=== PATIENT | female | born 1990 | race Asian ===

== ENCOUNTER 2016-06-18 13:23 | Emergency (ER) | payer OTHER ==
[2016-06-18] MEDS ORDERED: ACETAMINOPHEN 325 MG TAB As Ordered ONE (13:36)
[2016-06-18] MEDS ORDERED: OSELTAMIVIR PHOSPHATE 75 MG CAP (TAMIFLU) As Ordered ONE (14:27)
[2016-06-18] MEDS ORDERED: ONDANSETRON 4 MG ORAL DISINTEGRATING TAB (S0181) As Ordered ONE (14:35)
--- NOTE | 2016-06-18 14:54 | EDDOCDS ---
Nurse's Notes [facility] Name: Antoinette Mayo Age: 25 yrs Sex: Female : 1990 Arrival Date: 06/18/2016 Time: 13:23 Bed I1 / M1 Private MD: Diagnosis: Influenza due to identified novel influenza A virus;Nausea and vomiting Presentation: 06/18 13:31 Presenting complaint: Patient states: sore throat and feels like she has a fever, sinus pml congestion. ongoing since Saturday - has not taken tylenol or ibuprofen today. Adult Sepsis Screening: The patient does not have new or worsening altered mentation. Patient's respiratory rate is less than 22. Systolic blood pressure is greater than 100. Patient has a qSOFA score of 0- Negative Sepsis Screen. Suicide/Homicide risk assessment- the patient denies having any suicidal and/or homicidal ideations and does not present with any other emotional, behavioral or mental health complaints. 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 Transition of care: patient was not received from another setting of care. 13:31 Acuity: PRISCILA Level 4 pml 13:31 Method Of Arrival: Walkin/Carried/Asstd pml Triage Assessment: 13:32 General: Appears in no apparent distress, comfortable. Pain: Location: sore throat Pain pml currently is 6 out of 10 on a pain scale. 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 none - PMHx: none; - PSHx: none; - Social history: Smoking status: Patient states former smoker of tobacco. No barriers to communication noted, The patient speaks fluent Czech, Speaks appropriately for age. - Family history: Not pertinent. - : The pt / caregiver states he / she is not on anticoagulants. Home medication list is obtained from the patient. - Exposure Risk Screening:: None identified. Screenin:50 Screening information is obtained from the patient. Fall risk: No risks identified. kc3 Assistance ADL's: requires no assistance with activities of daily living. Abuse/DV Screen: The patient / caregiver reports he/she is: not in a situation that causes fear, pain or injury. Nutritional screening: No deficits noted. Advance Directives: Currently, there is no health care proxy. home support is adequate. Assessment: 14:50 General: Appears in no apparent distress, comfortable, Behavior is appropriate for age, kc3 cooperative. Neurological: Level of Consciousness is awake, alert, obeys commands. Respiratory: Respiratory effort is even, unlabored. GI: Reports nausea. Derm: Skin is pink, warm & dry. Vital Signs: 13:27 BP 133 / 76 RA Sitting (auto/reg); Pulse 103; Resp 20; Temp 101.6(O); Pulse Ox 99% on jrd R/A; Weight 72.85 kg (M); Height 5 ft. 6 in. (167.64 cm); Pain 6/10; 14:25 BP 112 / 64; Pulse 93; Resp 16; Temp 100.8(O); Pulse Ox 96% ; lr2 13:27 Body Mass Index 25.92 (72.85 kg, 167.64 cm) [facility] Vitals: 13:27 Log In Time: June 18, 2016 at 13:22. [facility] ED Course: 13:25 Patient visited by Frank Rodriguez PCA. jrd 13:25 Patient moved to Waiting jrd 13:30 Patient visited by Frank Rodriguez PCA. jrd 13:30 Patient moved to Pre RCE jrd 13:32 Triage Initiated pml 13:34 Patient visited by Donna Plascencia RN. pml 13:36 Patient moved to PR1 / 25 ml6 13:38 -Influenza A&B Rapid Antigen - Nose Sent. ar3 13:39 Patient moved to Pre RCE ar3 14:08 Patient moved to I1 / M1 ml6 14:09 Patient visited by Hallie Zeng PCA. jlf 14:10 Stephani Greene [facility]-C [facility] ef1 14:10 Daisy Butler MD is Attending Physician. ef1 14:10 Patient visited by Stephani Greene PA-C. ef1 14:45 Patient name changed from Rishika\S\\S\Mayo\S\ to Rishika\S\ \S\Mayo. EDMS 14:48 The patient / caregiver is instructed regarding the plan of care and ED course. kc3 14:49 No IV's were initiated during this patient's visit. No procedures done that require kc3 assistance. 14:50 [facility] Payment Agreement was scanned into [employer] and attached to record. mm15 Administered Medications: 13:38 Drug: Acetaminophen 650 mg [acetaminophen 325 mg tablet (2 tabs)] Route: PO; pml 14:34 Drug: Oseltamivir 75 mg [oseltamivir 75 mg capsule (1 caps)] Route: PO; kc3 14:48 Drug: Ondansetron ODT 4 mg [ondansetron 4 mg disintegrating tablet (1 tabs)] Route: PO; kc3 Order Results: Lab Order: -Influenza A&B Rapid Antigen - Nose; SPEC'M 06/18/16 13:38 Test: INFLUENZA A RAPID SCR by ICA; Value: INFLUENZA A RESULTS POSITIVE; Abnormal: Abnormal; Status: F Test: INFLUENZA A RAPID SCR by ICA; Value: Comments:; Status: F Test: INFLUENZA B RAPID SCR by ICA; Value: INFLUENZA B RESULTS NEGATIVE; Status: F Test Note: ; The Influenza test is a direct rapid immunoassay for the qualitative detection of Influenza viral antigen. Cell culture (Viral Culture) testing should be considered to confirm NEGATIVE results and to assist in detecting other viruses that can provide similar clinical symptoms. Please contact the lab within 24 hours ([phone]) if confirmatory testing is desired. Outcome: 14:30 Discharge ordered by Provider. ef1 14:51 Discharge Assessment: Patient awake, alert and oriented x 3. No cognitive and/or kc3 functional deficits noted. Patient verbalized understanding of disposition instructions. patient administered narcotics - no. The following High Risk Discharge criteria are identified: None. Discharged to home ambulatory. Condition: stable. Discharge instructions given to patient, Instructed on discharge instructions, follow up and referral plans. medication usage, Demonstrated understanding of instructions, medications, Pt was receptive of discharge instructions/ teaching. Prescriptions given X 2, Work note provided to patient. No special radiology studies were completed. Property :Personal belongings accompany Pt. 14:53 Patient left the ED. kc3 Signatures: Dispatcher [employer] EDMS Stephani Greene, RANDY PANavin ef1 Jay Webster RN RN ml6 Liza Hicks, DOG FOOD SHREDDER OPERATOR DOG FOOD SHREDDER OPERATOR ar3 Donna Plascencia RN RN pml McGrath, Marlynn mm15 Hallie Zeng, DOG FOOD SHREDDER OPERATOR DOG FOOD SHREDDER OPERATOR jlf Frank Rodriguez, DOG FOOD SHREDDER OPERATOR DOG FOOD SHREDDER OPERATOR jrd Lisa Mandel,RN RN kc3 Yadira Oden lr2 MTDD
--- NOTE | 2016-06-18 14:54 | EDDOCDS ---
Physician Documentation [facility] Name: Antoinette Mayo Age: 25 yrs Sex: Female : 1990 Arrival Date: 06/18/2016 Time: 13:23 Bed I1 / M1 Private MD: Disposition: 06/18/16 14:30 Discharged to Home/Self Care. Impression: Influenza due to identified novel influenza A virus, Nausea and vomiting. - Condition is Stable. - Discharge Instructions: Influenza Adult, Nausea and Vomiting, Evas-av-Daex. - Prescriptions for Ibuprofen 800 mg Oral Tablet - take 1 tablet by ORAL route every 8 hours As needed take with food; 30 tablet. Tamiflu 75 mg Oral Capsule - take 1 capsule by ORAL route every 12 hours for 5 days; 10 capsule. Zofran 4 mg Oral Tablet - take 1 tablet by ORAL route 4 times per day As needed; 10 tablet. - Medication Reconciliation, Local Pharmacy Hours, Work Release Form - 3 day form. - Follow up: Private Physician; When: 1 - 2 days; Reason: Recheck today's complaints, Continuance of care. Follow up: Emergency Department; Reason: Worsening of conditions. - Problem is new. - Symptoms have improved. Historical: - Allergies: no known allergies; - Home Meds: 1. none - PMHx: none; - PSHx: none; - Social history: Smoking status: Patient states former smoker of tobacco. No barriers to communication noted, The patient speaks fluent Yi, Speaks appropriately for age. - Family history: Not pertinent. - : The pt / caregiver states he / she is not on anticoagulants. Home medication list is obtained from the patient. - Exposure Risk Screening:: None identified. 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 6 in. (167.64 cm); Pain 6/10; 14:25 BP 112 / 64; Pulse 93; Resp 16; Temp 100.8(O); Pulse Ox 96% ; lr2 13:27 Body Mass Index 25.92 (72.85 kg, 167.64 cm) jrd MDM: 13:36 Acetaminophen Tablet 650 mg PO once ordered. ml6 13:36 Obtain sample by nasopharyngeal swab ordered. ml6 13:36 Strep Screen, Nursing ordered. ml6 13:36 -Influenza A&B Rapid Antigen - Nose Ordered. EDMS 13:45 GATS (NEGATIVE STREP SCREEN) Ordered. EDMS 14:07 -Influenza A&B Rapid Antigen - Nose Reviewed. sd1 14:11 Oseltamivir 75 mg PO once ordered. ef1 14:30 Ondansetron ODT Oral Disintegrating Tablet 4 mg PO once ordered. ef1 14:50 Financial registration complete. mm15 14:50 [facility] Payment Agreement was scanned into [employer] and attached to record. mm15 Administered Medications: 13:38 Drug: Acetaminophen 650 mg [acetaminophen 325 mg tablet (2 tabs)] Route: PO; pml 14:34 Drug: Oseltamivir 75 mg [oseltamivir 75 mg capsule (1 caps)] Route: PO; kc3 14:48 Drug: Ondansetron ODT 4 mg [ondansetron 4 mg disintegrating tablet (1 tabs)] Route: PO; kc3 Signatures: Dispatcher [employer] EDDE Daisy Butler MD MD sd1 Stephani Greene, PA-C PA-C ef1 Jay Webster, SUSI RN ml6 Donna Plascencia RN RN pml Marry Barriga mm15 Lisa Mandel RN RN kc3 The chart was reviewed and I authenticate all verbal orders and agree with the evaluation and treatment provided.Attachments: 14:50 [facility] Payment Agreement mm15 MTDD
--- NOTE | 2016-06-20 15:55 | EDDOCDS ---
[facility] Name: Antoinette Mayo Age: 25 yrs Sex: Female : 1990 Arrival Date: 06/18/2016 Time: 13:23 Bed I1 / M1 Private MD: Diagnosis: Influenza due to identified novel influenza A virus;Nausea and vomiting Presentation: 06/18 13:31 Presenting complaint: Patient states: sore throat and feels like she has a fever, sinus pml congestion. ongoing since Saturday - has not taken tylenol or ibuprofen today. Adult Sepsis Screening: The patient does not have new or worsening altered mentation. Patient's respiratory rate is less than 22. Systolic blood pressure is greater than 100. Patient has a qSOFA score of 0- Negative Sepsis Screen. Suicide/Homicide risk assessment- the patient denies having any suicidal and/or homicidal ideations and does not present with any other emotional, behavioral or mental health complaints. 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 Transition of care: patient was not received from another setting of care. 13:31 Acuity: PRISCILA Level 4 pml 13:31 Method Of Arrival: Walkin/Carried/Asstd pml Triage Assessment: 13:32 General: Appears in no apparent distress, comfortable. Pain: Location: sore throat Pain pml currently is 6 out of 10 on a pain scale. 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 none - PMHx: none; - PSHx: none; - Social history: Smoking status: Patient states former smoker of tobacco. No barriers to communication noted, The patient speaks fluent Slovak, Speaks appropriately for age. - Family history: Not pertinent. - : The pt / caregiver states he / she is not on anticoagulants. Home medication list is obtained from the patient. - Exposure Risk Screening:: None identified. Screenin:50 Screening information is obtained from the patient. Fall risk: No risks identified. kc3 Assistance ADL's: requires no assistance with activities of daily living. Abuse/DV Screen: The patient / caregiver reports he/she is: not in a situation that causes fear, pain or injury. Nutritional screening: No deficits noted. Advance Directives: Currently, there is no health care proxy. home support is adequate. Assessment: 14:50 General: Appears in no apparent distress, comfortable, Behavior is appropriate for age, kc3 cooperative. Neurological: Level of Consciousness is awake, alert, obeys commands. Respiratory: Respiratory effort is even, unlabored. GI: Reports nausea. Derm: Skin is pink, warm & dry. Vital Signs: 13:27 BP 133 / 76 RA Sitting (auto/reg); Pulse 103; Resp 20; Temp 101.6(O); Pulse Ox 99% on jrd R/A; Weight 72.85 kg (M); Height 5 ft. 6 in. (167.64 cm); Pain 6/10; 14:25 BP 112 / 64; Pulse 93; Resp 16; Temp 100.8(O); Pulse Ox 96% ; lr2 13:27 Body Mass Index 25.92 (72.85 kg, 167.64 cm) [facility] Vitals: 13:27 Log In Time: June 18, 2016 at 13:22. [facility] ED Course: 13:25 Patient visited by Frank Rodriguez PCA. jrd 13:25 Patient moved to Waiting jrd 13:30 Patient visited by Frank Rodriguez PCA. jrd 13:30 Patient moved to Pre RCE jrd 13:32 Triage Initiated pml 13:34 Patient visited by Donna Plascencia RN. pml 13:36 Patient moved to PR1 / 25 ml6 13:38 -Influenza A&B Rapid Antigen - Nose Sent. ar3 13:39 Patient moved to Pre RCE ar3 14:08 Patient moved to I1 / M1 ml6 14:09 Patient visited by Hallie Zeng PCA. jlf 14:10 Stephani Greene PA-C is [facility]. ef1 14:10 Daisy Butler MD is Attending Physician. ef1 14:10 Patient visited by Stephani Greene PA-C. ef1 14:45 Patient name changed from Rishika\S\\S\Mayo\S\ to Rishika\S\ \S\Mayo. EDMS 14:48 The patient / caregiver is instructed regarding the plan of care and ED course. kc3 14:49 No IV's were initiated during this patient's visit. No procedures done that require kc3 assistance. 14:50 [facility] Payment Agreement was scanned into [employer] and attached to record. mm15 06/19 10:01 T-Sheet-- Draft Copy was scanned into [employer] and attached to record. gb Administered Medications: 06/18 13:38 Drug: Acetaminophen 650 mg [acetaminophen 325 mg tablet (2 tabs)] Route: PO; pml 14:34 Drug: Oseltamivir 75 mg [oseltamivir 75 mg capsule (1 caps)] Route: PO; kc3 14:48 Drug: Ondansetron ODT 4 mg [ondansetron 4 mg disintegrating tablet (1 tabs)] Route: PO; kc3 Order Results: Lab Order: -Influenza A&B Rapid Antigen - Nose; SPEC'M 06/18/16 13:38 Test: INFLUENZA A RAPID SCR by ICA; Value: INFLUENZA A RESULTS POSITIVE; Abnormal: Abnormal; Status: F Test: INFLUENZA A RAPID SCR by ICA; Value: Comments:; Status: F Test: INFLUENZA B RAPID SCR by ICA; Value: INFLUENZA B RESULTS NEGATIVE; Status: F Test Note: ; The Influenza test is a direct rapid immunoassay for the qualitative detection of Influenza viral antigen. Cell culture (Viral Culture) testing should be considered to confirm NEGATIVE results and to assist in detecting other viruses that can provide similar clinical symptoms. Please contact the lab within 24 hours ([phone]) if confirmatory testing is desired. Lab Order: GATS (NEGATIVE STREP SCREEN); SPEC'M 06/18/16 11:46 Test: GATS CULTURE (NEG STREP SCR); Value: GATS RESULT NEGATIVE FOR STREP PYOGENES (GROUP A); Status: F Test: GATS CULTURE (NEG STREP SCR); Value: <EXTERNAL COMMENT eCWMed> FULL REPORT IN LAB NOTES (eCW and Medent).; Status: F Outcome: 14:30 Discharge ordered by Provider. ef1 14:51 Discharge Assessment: Patient awake, alert and oriented x 3. No cognitive and/or kc3 functional deficits noted. Patient verbalized understanding of disposition instructions. patient administered narcotics - no. The following High Risk Discharge criteria are identified: None. Discharged to home ambulatory. Condition: stable. Discharge instructions given to patient, Instructed on discharge instructions, follow up and referral plans. medication usage, Demonstrated understanding of instructions, medications, Pt was receptive of discharge instructions/ teaching. Prescriptions given X 2, Work note provided to patient. No special radiology studies were completed. Property :Personal belongings accompany Pt. 14:53 Patient left the ED. [email or web address] Signatures: Dispatcher [employer] EDMS Bailey Pena, Reg Reg gb JcAnthonyStephani, PA-C PAKaydenC ef1 Jay Webster, RN RN ml6 Liza Hicks, PLASTIC CNC MACHINE OPERATOR PLASTIC CNC MACHINE OPERATOR ar3 Donna Plascencia,RN RN Marry Jacobsen mm15 Hallie Zeng, PLASTIC CNC MACHINE OPERATOR PLASTIC CNC MACHINE OPERATOR jlf Frank Rodriguez, PLASTIC CNC MACHINE OPERATOR PLASTIC CNC MACHINE OPERATOR Lisa Patton,SUSI RN brigitte3 Yadira Oden2 Chart Complete MTDD
--- NOTE | 2016-06-20 15:55 | EDDOCDS ---
Physician Documentation [facility] Name: Antoinette Mayo Age: 25 yrs Sex: Female : 1990 Arrival Date: 06/18/2016 Time: 13:23 Bed I1 / M1 Private MD: Disposition: 06/18/16 14:30 Discharged to Home/Self Care. Impression: Influenza due to identified novel influenza A virus, Nausea and vomiting. - Condition is Stable. - Discharge Instructions: Influenza Adult, Nausea and Vomiting, Ykne-ff-Spws. - Prescriptions for Ibuprofen 800 mg Oral Tablet - take 1 tablet by ORAL route every 8 hours As needed take with food; 30 tablet. Tamiflu 75 mg Oral Capsule - take 1 capsule by ORAL route every 12 hours for 5 days; 10 capsule. Zofran 4 mg Oral Tablet - take 1 tablet by ORAL route 4 times per day As needed; 10 tablet. - Medication Reconciliation, Local Pharmacy Hours, Work Release Form - 3 day form. - Follow up: Private Physician; When: 1 - 2 days; Reason: Recheck today's complaints, Continuance of care. Follow up: Emergency Department; Reason: Worsening of conditions. - Problem is new. - Symptoms have improved. Historical: - Allergies: no known allergies; - Home Meds: 1. none - PMHx: none; - PSHx: none; - Social history: Smoking status: Patient states former smoker of tobacco. No barriers to communication noted, The patient speaks fluent Hebrew, Speaks appropriately for age. - Family history: Not pertinent. - : The pt / caregiver states he / she is not on anticoagulants. Home medication list is obtained from the patient. - Exposure Risk Screening:: None identified. 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 6 in. (167.64 cm); Pain 6/10; 14:25 BP 112 / 64; Pulse 93; Resp 16; Temp 100.8(O); Pulse Ox 96% ; lr2 13:27 Body Mass Index 25.92 (72.85 kg, 167.64 cm) jrd MDM: 13:36 Acetaminophen Tablet 650 mg PO once ordered. ml6 13:36 Obtain sample by nasopharyngeal swab ordered. ml6 13:36 Strep Screen, Nursing ordered. ml6 13:36 -Influenza A&B Rapid Antigen - Nose Ordered. EDMS 13:45 GATS (NEGATIVE STREP SCREEN) Ordered. EDMS 14:07 -Influenza A&B Rapid Antigen - Nose Reviewed. sd1 14:11 Oseltamivir 75 mg PO once ordered. ef1 14:30 Ondansetron ODT Oral Disintegrating Tablet 4 mg PO once ordered. ef1 14:50 Financial registration complete. mm15 14:50 [facility] Payment Agreement was scanned into [employer] and attached to record. 15 06/19 10:01 T-Sheet-- Draft Copy was scanned into [employer] and attached to record. gb Administered Medications: 06/18 13:38 Drug: Acetaminophen 650 mg [acetaminophen 325 mg tablet (2 tabs)] Route: PO; pml 14:34 Drug: Oseltamivir 75 mg [oseltamivir 75 mg capsule (1 caps)] Route: PO; kc3 14:48 Drug: Ondansetron ODT 4 mg [ondansetron 4 mg disintegrating tablet (1 tabs)] Route: PO; kc3 Signatures: Dispatcher [employer] EDDaisy Grimes MD MD sd1 Bailey Pena, Reg Reg gb Stephani Greene PA-C PANavin ef1 Jay Webster RN RN ml6 Donna Plascencia RN RN pml Marry Barriga mm15 Lisa Mandel RN RN kc3 The chart was reviewed and I authenticate all verbal orders and agree with the evaluation and treatment provided.Attachments: 14:50 [facility] Payment Agreement 15 06/19 10:01 T-Sheet-- Draft Copy gb Chart Complete MTDD
--- NOTE | 2016-06-20 15:55 | EDDOCDS ---
Physician Documentation [facility] Name: Antoinette Mayo Age: 25 yrs Sex: Female : 1990 Arrival Date: 06/18/2016 Time: 13:23 Bed I1 / M1 Private MD: Disposition: 06/18/16 14:30 Discharged to Home/Self Care. Impression: Influenza due to identified novel influenza A virus, Nausea and vomiting. - Condition is Stable. - Discharge Instructions: Influenza Adult, Nausea and Vomiting, Psip-dc-Fcpd. - Prescriptions for Ibuprofen 800 mg Oral Tablet - take 1 tablet by ORAL route every 8 hours As needed take with food; 30 tablet. Tamiflu 75 mg Oral Capsule - take 1 capsule by ORAL route every 12 hours for 5 days; 10 capsule. Zofran 4 mg Oral Tablet - take 1 tablet by ORAL route 4 times per day As needed; 10 tablet. - Medication Reconciliation, Local Pharmacy Hours, Work Release Form - 3 day form. - Follow up: Private Physician; When: 1 - 2 days; Reason: Recheck today's complaints, Continuance of care. Follow up: Emergency Department; Reason: Worsening of conditions. - Problem is new. - Symptoms have improved. Historical: - Allergies: no known allergies; - Home Meds: 1. none - PMHx: none; - PSHx: none; - Social history: Smoking status: Patient states former smoker of tobacco. No barriers to communication noted, The patient speaks fluent Nepali, Speaks appropriately for age. - Family history: Not pertinent. - : The pt / caregiver states he / she is not on anticoagulants. Home medication list is obtained from the patient. - Exposure Risk Screening:: None identified. 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 6 in. (167.64 cm); Pain 6/10; 14:25 BP 112 / 64; Pulse 93; Resp 16; Temp 100.8(O); Pulse Ox 96% ; lr2 13:27 Body Mass Index 25.92 (72.85 kg, 167.64 cm) jrd MDM: 13:36 Acetaminophen Tablet 650 mg PO once ordered. ml6 13:36 Obtain sample by nasopharyngeal swab ordered. ml6 13:36 Strep Screen, Nursing ordered. ml6 13:36 -Influenza A&B Rapid Antigen - Nose Ordered. EDMS 13:45 GATS (NEGATIVE STREP SCREEN) Ordered. EDMS 14:07 -Influenza A&B Rapid Antigen - Nose Reviewed. sd1 14:11 Oseltamivir 75 mg PO once ordered. ef1 14:30 Ondansetron ODT Oral Disintegrating Tablet 4 mg PO once ordered. ef1 14:50 Financial registration complete. mm15 14:50 [facility] Payment Agreement was scanned into [employer] and attached to record. 15 06/19 10:01 T-Sheet-- Draft Copy was scanned into [employer] and attached to record. gb Administered Medications: 06/18 13:38 Drug: Acetaminophen 650 mg [acetaminophen 325 mg tablet (2 tabs)] Route: PO; pml 14:34 Drug: Oseltamivir 75 mg [oseltamivir 75 mg capsule (1 caps)] Route: PO; kc3 14:48 Drug: Ondansetron ODT 4 mg [ondansetron 4 mg disintegrating tablet (1 tabs)] Route: PO; kc3 Signatures: Dispatcher [employer] EDDaisy Grimes MD MD sd1 Bailey Pena, Reg Reg gb Stephani Greene PA-C PANavin ef1 Jay Webster RN RN ml6 Donna Plascencia RN RN pml Marry Barriga mm15 Lisa Mandel RN RN kc3 The chart was reviewed and I authenticate all verbal orders and agree with the evaluation and treatment provided.Attachments: 14:50 [facility] Payment Agreement 15 06/19 10:01 T-Sheet-- Draft Copy gb Chart Complete MTDD
== END 2016-06-18 14:53 | disposition home or self-care (01) ==
LOC: M ED 13:23
DX: J10.1 Influenza due to other identified influenza virus with other respiratory manifestations (principal); R11.2 Nausea with vomiting, unspecified; J02.9 Acute pharyngitis, unspecified; Z87.891 Personal history of nicotine dependence

== ENCOUNTER → 2017-11-13 | Outpatient (CLI) | payer OTHER | LOC: M LAB 18:45 | DX: Z01.83 Encounter for blood typing (principal) | CPT/HCPCS: 86901 ==

== ENCOUNTER → 2018-02-05 | Outpatient (CLI) | payer OTHER | LOC: M RAD 14:28 | DX: N60.32 Fibrosclerosis of left breast (principal) | CPT/HCPCS: 77065 ==